=== PATIENT | male | born 1990 | race Two or more races ===

== ENCOUNTER 2022-06-02 22:21 | Emergency (ER) | payer MEDICAID, SELFPAY ==
--- NOTE | ~2022-06-02 | XR_ITS ---
EXAMINATION: XR KNEE, LEFT CLINICAL INFORMATION: Pain COMPARISON: None available. TECHNIQUE: Four views of the left knee. FINDINGS: Osseous alignment is anatomic. Joint spaces appear maintained. No acute fracture is seen. No significant effusion. XR/XR knee LT 4V IMPRESSION: No acute findings identified.
--- NOTE | ~2022-06-02 | XR_ITS ---
EXAMINATION: XR HUMERUS, RIGHT CLINICAL INFORMATION: Pain COMPARISON: None available. TECHNIQUE: AP and lateral views of the right humerus. FINDINGS: Alignment at the shoulder and elbow appears anatomic on these views. No acute fracture is seen. No significant focal soft tissue abnormality identified. XR/XR humerus RT IMPRESSION: No acute findings identified.
--- NOTE | ~2022-06-02 | XR_ITS ---
EXAMINATION: XR SHOULDER, LEFT CLINICAL INFORMATION: Pain COMPARISON: None available. TECHNIQUE: Two views of the left shoulder. FINDINGS: Glenohumeral alignment appears anatomic on these views. No acute fracture is seen. Acromioclavicular joint is intact. XR/XR shoulder LT min 2V IMPRESSION: No acute findings identified.
[2022-06-02 23:04] VITALS: BP 152/95; PULSE 77; RESP 18; TEMP 36.6; O2SAT 97; BMI 38.0
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
[2022-06-03 01:43] VITALS: BP 140/93; PULSE 71; RESP 17; TEMP 36.3; O2SAT 96
== END 2022-06-03 02:19 | disposition home or self-care (01) ==
PROVIDERS: Emergency Provider Internal Medicine
DX: S16.1XXA Strain of muscle, fascia and tendon at neck level, initial encounter (principal); S83.92XA Sprain of unspecified site of left knee, initial encounter; V43.52XA Car driver injured in collision with other type car in traffic accident, initial encounter; Y93.89 Activity, other specified; Y92.414 Local residential or business street as the place of occurrence of the external cause; Y99.9 Unspecified external cause status
CPT/HCPCS: 73030; 73060; 73564; 99283; 99284